=== PATIENT | male | born 1990 | race Caucasian/White ===

== ENCOUNTER 2016-08-09 17:12 | Inpatient (IN) | payer OTHER ==
[~2016-08-09] VITALS: Ht 165.1 cm; Wt 77.2 kg
[~2016-08-09 17:12] MED LIST: ALEVE220 M2 PO; AMOXICILLI250 MG/5 M PO; CLEOCIN300 MG PO; CLINDAMYCIN HC300 MG PO; DICLOXACILLIN500 MG PO; KEFLEX500 MG PO; MOTRIN600 MG PO; NORCO 5/3251 TABLET PO; TESSALON PERLE100 MG PO; ZOFRAN ODT4 MG PO
[2016-08-09 17:56] LABS: MCH 30.3 PG (29.0-34.0); MCHC 35.8 G/DL (30.0-36.0); MCV 84.6 FL (86-99); MEAN PLAT.VOLUME 9.1 uM^3 (9.0-12.4); PLATELET COUNT 249 K/uL (156-360); RBC DIS.WIDTH-CV 12.8 % (11.8-14.6); RBC DIS.WIDTH-SD 39.1 % (39-53); RED BLOOD COUNT 5.32 M/uL (4.00-5.50); WHITE BLOOD COUNT 29.2 K/uL (4.1-10.2)
[2016-08-09 17:57] LABS: EOSINOPHIL (%) 0.1 % (0-5); IMMATURE GRANULOCYTE (%) 0.4 % (0.0-0.7); IMMATURE GRANULOCYTE COUNT 1.1 K/uL; LYMPHOCYTE COUNT 1.6 K/uL (1.0-2.8); MONOCYTE COUNT 1.5 K/uL (0-0.8); NEUTROPHIL (%) 88.9 % (45-76); NEUTROPHIL COUNT 25.9 K/uL (1.8-6.4)
[2016-08-09 18:03] LABS: CHLORIDE 106 mEq/L (99-109); POTASSIUM 3.4 mEq/L (3.7-5.4); SODIUM 139 mEq/L (136-147)
[2016-08-09 18:05] LABS: GLUCOSE 149 mg/dL (70-99)
[2016-08-09 18:06] LABS: ANION GAP 13 MEQ/L (2-14)
[2016-08-09 18:09] LABS: GFR ESTIMATE (CALCULATED) > 59 mL/min/
[2016-08-09 18:10] LABS: UREA NITROGEN (BUN) 13 mg/dL (9-23)
[2016-08-09 22:02] LABS: TOTAL BILIRUBIN 0.9 mg/dL (0.0-1.0)
[2016-08-09 22:03] LABS: ALKALINE PHOSPHATASE 59 IU/L (3-129)
[2016-08-09 22:05] LABS: DIRECT BILIRUBIN 0.3 mg/dL (0.0-0.3)
[2016-08-09 22:06] LABS: LIPASE 29 U/L (1.0-51.0)
[2016-08-10] VITALS (7 sets, daily range): BP systolic 95–135; BP diastolic 46–65
[2016-08-10 07:06] LABS: HEMATOCRIT 39.8 % (38.0-50.0); MCH 29.9 PG (29.0-34.0); MCHC 33.9 G/DL (30.0-36.0); MCV 88.1 FL (86-99); PLATELET COUNT 175 K/uL (156-360); RBC DIS.WIDTH-CV 13.3 % (11.8-14.6); RBC DIS.WIDTH-SD 42.6 % (39-53); RED BLOOD COUNT 4.52 M/uL (4.00-5.50); WHITE BLOOD COUNT 23.8 K/uL (4.1-10.2)
[2016-08-10 07:17] LABS: ANION GAP 8 MEQ/L (2-14); CHLORIDE 107 MEQ/L (99-109); GFR ESTIMATE (CALCULATED) > 59 mL/min/; GLUCOSE 114 mg/dL (70-99); POTASSIUM 3.8 MEQ/L (3.7-5.4); SAMPLE HEMOLYSIS CHECK 0; SAMPLE ICTERIC CHECK 0; SAMPLE LIPEMIA CHECK 0; SODIUM 137 MEQ/L (136-147); UREA NITROGEN (BUN) 10 mg/dL (9-23)
[2016-08-10 10:26] LABS: EOSINOPHIL (%) 0 % (0-5); HEMATOLOGY COMMENT 1 SMEAR COMPATIBLE; IMMATURE GRANULOCYTE (%) 0.5 % (0.0-0.7); IMMATURE GRANULOCYTE COUNT 0.1 K/uL; LYMPHOCYTE COUNT 1.4 K/uL (1.0-2.8); MONOCYTE (%) 4.1 % (3-12); NEUTROPHIL (%) 89.6 % (45-76); NEUTROPHIL COUNT 21.3 K/uL (1.8-6.4); USER ID STC
[2016-08-11 00:10] VITALS: BP 129/63
[2016-08-11 06:47] LABS: ANION GAP 5 MEQ/L (2-14); CHLORIDE 108 MEQ/L (99-109); GFR ESTIMATE (CALCULATED) > 59 mL/min/; GLUCOSE 125 mg/dL (70-99); POTASSIUM 3.9 MEQ/L (3.7-5.4); SAMPLE HEMOLYSIS CHECK 0; SAMPLE ICTERIC CHECK 0; SAMPLE LIPEMIA CHECK 0; SODIUM 140 MEQ/L (136-147); UREA NITROGEN (BUN) 10 mg/dL (9-23)
[2016-08-11 06:52] LABS: MCH 29.8 PG (29.0-34.0); MCHC 33.6 G/DL (30.0-36.0); MCV 88.7 FL (86-99); MEAN PLAT.VOLUME 9.9 uM^3 (9.0-12.4); PLATELET COUNT 156 K/uL (156-360); RBC DIS.WIDTH-CV 13.5 % (11.8-14.6); RBC DIS.WIDTH-SD 43.7 % (39-53); RED BLOOD COUNT 4.06 M/uL (4.00-5.50)
[2016-08-11 06:53] LABS: WHITE BLOOD COUNT 9.9 K/uL (4.1-10.2)
[2016-08-11 08:04] VITALS: BP 120/67
[2016-08-11 15:30] VITALS: BP 134/75
[2016-08-11 21:00] VITALS: BP 132/78
[2016-08-11 23:32] VITALS: BP 134/72
[2016-08-12 05:36] LABS: HEMATOCRIT 38.6 % (38.0-50.0); MCH 30.3 PG (29.0-34.0); MCHC 33.9 G/DL (30.0-36.0); MCV 89.1 FL (86-99); PLATELET COUNT 181 K/uL (156-360); RBC DIS.WIDTH-CV 13.3 % (11.8-14.6); RBC DIS.WIDTH-SD 43.9 % (39-53); RED BLOOD COUNT 4.33 M/uL (4.00-5.50); WHITE BLOOD COUNT 7.7 K/uL (4.1-10.2)
[2016-08-12 06:07] LABS: ANION GAP 9 MEQ/L (2-14); CHLORIDE 106 MEQ/L (99-109); GFR ESTIMATE (CALCULATED) > 59 mL/min/; GLUCOSE 132 mg/dL (70-99); SAMPLE HEMOLYSIS CHECK 0; SAMPLE ICTERIC CHECK 0; SAMPLE LIPEMIA CHECK 0; SODIUM 142 MEQ/L (136-147); UREA NITROGEN (BUN) 10 mg/dL (9-23)
[2016-08-12 07:30] VITALS: BP 115/67
[2016-08-12] MEDS ORDERED: ATHLETIC FOOT C30 GM TP (09:56)
[2016-08-12] MEDS ORDERED: HYDROCODON-ACE1 EAC9 PO (09:56)
== END 2016-08-12 11:25 | disposition home or self-care (01) | DRG 872 ==
LOC: EME 17:12 → EDOF 21:41 → 3EAST 21:41
PROVIDERS: Hospitalist; Physician Assistant
DX: A41.9 Sepsis, unspecified organism (principal); L03.115 Cellulitis of right lower limb; B35.3 Tinea pedis; B95.1 Streptococcus, group B, as the cause of diseases classified elsewhere; F17.210 Nicotine dependence, cigarettes, uncomplicated
CPT/HCPCS: 80048; 80076; 81003; 83605; 83690; 85025; 85027; 87040; 87077; 87186; 87801; 93971; 99281; 99285; J1170; J2405; J2540; J2543; J3370; J3480; J7030; J7050; J7120

== ENCOUNTER 2016-09-29 17:59 | Emergency (ER) | payer OTHER ==
[~2016-09-29] VITALS: Ht 175.3 cm; Wt 97.5 kg
[~2016-09-29 17:59] MED LIST changes: +ATHLETIC FOOT C30 GM TP; +HYDROCODON-ACE1 EAC9 PO
[2016-09-29 19:01] LABS: HEMATOCRIT 41.1 % (38.0-50.0); MCH 30.3 PG (29.0-34.0); MCV 86.5 FL (86-99); MEAN PLAT.VOLUME 9.3 uM^3 (9.0-12.4); PLATELET COUNT 217 K/uL (156-360); RBC DIS.WIDTH-CV 12.6 % (11.8-14.6); RED BLOOD COUNT 4.75 M/uL (4.00-5.50)
[2016-09-29 19:11] LABS: CHLORIDE 110 mEq/L (99-109); POTASSIUM 3.7 mEq/L (3.7-5.4); SODIUM 144 mEq/L (136-147)
[2016-09-29 19:13] LABS: GLUCOSE 101 mg/dL (70-99)
[2016-09-29 19:15] LABS: ANION GAP 10 MEQ/L (2-14); TOTAL BILIRUBIN 0.3 mg/dL (0.0-1.0)
[2016-09-29 19:17] LABS: ALKALINE PHOSPHATASE 56 IU/L (3-129); GFR ESTIMATE (CALCULATED) > 59 mL/min/
[2016-09-29 19:18] LABS: UREA NITROGEN (BUN) 15 mg/dL (9-23)
[2016-09-29 22:00] VITALS: BP 132/68
== END 2016-09-29 22:03 | disposition home or self-care (01) ==
LOC: EME 17:59
PROVIDERS: Nurse Practitioner Family
DX: L03.115 Cellulitis of right lower limb (principal)
CPT/HCPCS: 73610; 80053; 85027; 87040; 99281; 99285; J0696; J7050

== ENCOUNTER 2016-12-15 20:43 | Emergency (ER) | payer OTHER ==
[~2016-12-15] VITALS: Ht 167.6 cm; Wt 94.1 kg
[2016-12-15] MEDS ORDERED: FLEXERIL10 MG PO (22:40)
[2016-12-15] MEDS ORDERED: MEDROL DOSEPAK4 MG PO (22:40)
[2016-12-15] MEDS ORDERED: PERCOCET 5/31 TABLET PO (22:40)
[2016-12-15 22:56] VITALS: BP 127/64
== END 2016-12-15 22:57 | disposition home or self-care (01) ==
LOC: EME 20:43
DX: S39.012A Strain of muscle, fascia and tendon of lower back, initial encounter (principal); X50.9XXA Other and unspecified overexertion or strenuous movements or postures, initial encounter
CPT/HCPCS: 72100; 99281; 99284; J1885

== ENCOUNTER 2017-04-28 13:16 | Emergency (ER) | payer OTHER ==
[~2017-04-28 13:16] MED LIST changes: +FLEXERIL10 MG PO; +MEDROL DOSEPAK4 MG PO; +PERCOCET 5/31 TABLET PO
== END 2017-04-28 13:20 | disposition left against medical advice (07) ==
LOC: EME 13:16
DX: Z53.21 Procedure and treatment not carried out due to patient leaving prior to being seen by health care provider (principal)

== ENCOUNTER 2017-08-04 02:34 | Inpatient (IN) | payer OTHER ==
[~2017-08-04] VITALS: Ht 172.7 cm; Wt 96.6 kg
[2017-08-04 03:00] LABS: HEMATOCRIT 41.6 % (38.0-50.0); HEMOGLOBIN 14.5 G/DL (12.5-16.6); MCH 30.9 PG (29.0-34.0); MCHC 34.9 G/DL (30.0-36.0); MCV 88.5 FL (86-99); PLATELET COUNT 217 K/uL (156-360); RBC DIS.WIDTH-CV 12.6 % (11.8-14.6); RBC DIS.WIDTH-SD 41.3 % (39-53); WHITE BLOOD COUNT 23.3 K/uL (4.1-10.2)
[2017-08-04 03:09] LABS: ALBUMIN 3.9 g/dL (3.2-4.8); CHLORIDE 104 mEq/L (99-109); POTASSIUM 3.6 mEq/L (3.7-5.4); SODIUM 136 mEq/L (136-147)
[2017-08-04 03:11] LABS: GLUCOSE 126 mg/dL (70-99); TOTAL PROTEIN 6.8 g/dL (6.4-8.3)
[2017-08-04 03:13] LABS: TOTAL BILIRUBIN 0.4 mg/dL (0.0-1.0)
[2017-08-04 03:15] LABS: ALKALINE PHOSPHATASE 52 IU/L (3-129); CREATININE 0.9 mg/dL (0.6-1.3); GFR ESTIMATE (CALCULATED) > 59 mL/min/ (58.99-99999)
[2017-08-04 03:16] LABS: UREA NITROGEN (BUN) 21 mg/dL (9-23)
[2017-08-04 03:17] LABS: AST (GOT) 18 IU/L (2-34)
[2017-08-04 03:18] LABS: ALT (GPT) 24 IU/L (3-49)
[2017-08-04 13:05] VITALS: BP 121/67
[2017-08-04 19:29] VITALS: BP 134/67
[2017-08-04 23:50] VITALS: BP 133/73
[2017-08-05 03:23] VITALS: BP 145/67
[2017-08-05 06:42] LABS: BASOPHIL (%) 0.4 % (0-1); EOSINOPHIL (%) 3.9 % (0-5); EOSINOPHIL COUNT 0.4 K/uL (0-0.3); HEMATOCRIT 39.2 % (38.0-50.0); HEMOGLOBIN 12.9 G/DL (12.5-16.6); IMMATURE GRANULOCYTE (%) 0.2 % (0.0-0.7); LYMPHOCYTE (%) 31.6 % (15-42); LYMPHOCYTE COUNT 2.9 K/uL (1.0-2.8); MCH 29.5 PG (29.0-34.0); MCHC 32.9 G/DL (30.0-36.0); MCV 89.5 FL (86-99); MONOCYTE (%) 11.5 % (3-12); NEUTROPHIL (%) 52.4 % (45-76); NEUTROPHIL COUNT 4.8 K/uL (1.8-6.4); PLATELET COUNT 194 K/uL (156-360); RBC DIS.WIDTH-SD 42.9 % (39-53); RED BLOOD COUNT 4.38 M/uL (4.00-5.50); WHITE BLOOD COUNT 9.1 K/uL (4.1-10.2)
[2017-08-05 07:10] LABS: ALBUMIN 3.3 G/DL (3.2-4.8); ALKALINE PHOSPHATASE 40 IU/L (3-129); ALT (GPT) 20 IU/L (3-49); AST (GOT) 14 IU/L (2-34); CHLORIDE 111 MEQ/L (99-109); CREATININE 0.9 MG/DL (0.6-1.3); GFR ESTIMATE (CALCULATED) > 59 mL/min/ (58.99-99999); SODIUM 141 MEQ/L (136-147); TOTAL BILIRUBIN 0.4 MG/DL (0.0-1.0); TOTAL PROTEIN 5.6 G/DL (6.4-8.3); UREA NITROGEN (BUN) 13 mg/dL (9-23)
[2017-08-05 07:12] LABS: GLUCOSE 89 mg/dL (70-99)
[2017-08-05 08:24] VITALS: BP 129/75
[2017-08-05] MEDS ORDERED: PERCOCET 5/31 TABLET PO (12:23)
[2017-08-05] MEDS ORDERED: PEN-VEE K,VEET500 MG PO (12:23)
== END 2017-08-05 14:39 | disposition home or self-care (01) | DRG 603 ==
LOC: EME 02:34 → EDOF 07:49 → ENRESERV 07:55 → EDOF 08:21 → ENRESERV 13:44 → 5SOUTH 14:53
PROVIDERS: Physician Assistant; Student in an Organized Health Care Education/Training Program
DX: L03.115 Cellulitis of right lower limb (principal); B35.3 Tinea pedis; K21.9 Gastro-esophageal reflux disease without esophagitis; G43.909 Migraine, unspecified, not intractable, without status migrainosus; F17.210 Nicotine dependence, cigarettes, uncomplicated; R11.10 Vomiting, unspecified; M79.661 Pain in right lower leg; R68.83 Chills (without fever); Z80.0 Family history of malignant neoplasm of digestive organs
CPT/HCPCS: 73590; 80053; 83605; 85025; 85027; 87040; 99281; 99285; J0295; J0696; J1650; J2270; J2543; J3010; J3370; J7030; J7050

== ENCOUNTER 2017-10-09 20:09 | Inpatient (IN) | payer OTHER ==
[~2017-10-09] VITALS: Ht 172.7 cm; Wt 98.3 kg
[~2017-10-09 20:09] MED LIST changes: +PEN-VEE K,VEET500 MG PO
[2017-10-09 20:44] LABS: HEMATOCRIT 45.2 % (38.0-50.0); HEMOGLOBIN 16.2 G/DL (12.5-16.6); MCHC 35.8 G/DL (30.0-36.0); MCV 86.4 FL (86-99); PLATELET COUNT 233 K/uL (156-360); RBC DIS.WIDTH-CV 11.9 % (11.8-14.6); RBC DIS.WIDTH-SD 37.9 % (39-53); RED BLOOD COUNT 5.23 M/uL (4.00-5.50); WHITE BLOOD COUNT 28.3 K/uL (4.1-10.2)
[2017-10-09 20:52] LABS: ALBUMIN 4.6 g/dL (3.2-4.8); CHLORIDE 106 mEq/L (99-109); POTASSIUM 3.7 mEq/L (3.7-5.4); SODIUM 138 mEq/L (136-147)
[2017-10-09 20:54] LABS: GLUCOSE 138 mg/dL (70-99); TOTAL PROTEIN 7.5 g/dL (6.4-8.3)
[2017-10-09 20:56] LABS: TOTAL BILIRUBIN 0.8 mg/dL (0.0-1.0)
[2017-10-09 20:58] LABS: ALKALINE PHOSPHATASE 61 IU/L (3-129); CREATININE 0.9 mg/dL (0.6-1.3); GFR ESTIMATE (CALCULATED) > 59 mL/min/ (58.99-99999)
[2017-10-09 20:59] LABS: UREA NITROGEN (BUN) 17 mg/dL (9-23)
[2017-10-09 21:00] LABS: AST (GOT) 17 IU/L (2-34)
[2017-10-09 21:01] LABS: ALT (GPT) 25 IU/L (3-49)
[2017-10-10] VITALS (7 sets, daily range): BP systolic 119–133; BP diastolic 59–79
[2017-10-10 05:43] LABS: BASOPHIL (%) 0.2 % (0-1); BASOPHIL COUNT 0.1 K/uL (0-0.1); EOSINOPHIL (%) 0 % (0-5); HEMATOCRIT 39.9 % (38.0-50.0); IMMATURE GRANULOCYTE (%) 0.7 % (0.0-0.7); LYMPHOCYTE (%) 4.5 % (15-42); LYMPHOCYTE COUNT 1.2 K/uL (1.0-2.8); MCH 31.3 PG (29.0-34.0); MCHC 35.3 G/DL (30.0-36.0); MCV 88.5 FL (86-99); MONOCYTE (%) 4.7 % (3-12); MONOCYTE COUNT 1.2 K/uL (0-0.8); NEUTROPHIL (%) 89.9 % (45-76); NEUTROPHIL COUNT 23.1 K/uL (1.8-6.4); PLATELET COUNT 197 K/uL (156-360); RED BLOOD COUNT 4.51 M/uL (4.00-5.50); WHITE BLOOD COUNT 25.7 K/uL (4.1-10.2)
[2017-10-10 05:58] LABS: CHLORIDE 106 MEQ/L (99-109); CREATININE 0.9 MG/DL (0.6-1.3); GFR ESTIMATE (CALCULATED) > 59 mL/min/ (58.99-99999); GLUCOSE 128 mg/dL (70-99); POTASSIUM 3.7 MEQ/L (3.7-5.4); SODIUM 139 MEQ/L (136-147); UREA NITROGEN (BUN) 16 mg/dL (9-23)
[2017-10-10 06:19] LABS: HEMOGLOBIN 14.1 G/DL (12.5-16.6)
== END 2017-10-11 10:56 | disposition home or self-care (01) | DRG 872 ==
LOC: EME 20:09 → EXP 20:09 → EDOF 22:59 → 3EAST 22:59 → ENRESERV 23:01 → 3EAST 10-10 01:55
PROVIDERS: Hospitalist
DX: A41.9 Sepsis, unspecified organism (principal); B95.1 Streptococcus, group B, as the cause of diseases classified elsewhere; L03.115 Cellulitis of right lower limb; G43.909 Migraine, unspecified, not intractable, without status migrainosus; Z80.0 Family history of malignant neoplasm of digestive organs
CPT/HCPCS: 73590; 80048; 80053; 80202; 83605; 85025; 85027; 87040; 87077; 87186; 87801; 99281; 99285; J0290; J0295; J2270; J2405; J3010; J3370; J7030; J7050